=== PATIENT | male | born 1995 | race Two or more races ===

== ENCOUNTER 2024-10-08 11:23 | Emergency (ER) | payer MEDICAID ==
[~2024-10-08] VITALS: Ht 167.6 cm; Wt 77.3 kg
[2024-10-08 12:03] VITALS: TEMP 98
[2024-10-08] MEDS: PERTUSS(ACELL),DIPH,TET/PF 0.5 ML SYRINGE [ADULT] IM. ONE (15:01)
[2024-10-08] MEDS ORDERED: CEPH-558 PO (15:24)
[2024-10-08 15:30] VITALS: BP 122/72; PULSE 82; RESP 18; O2SAT 99
== END 2024-10-08 15:50 | disposition home or self-care (01) ==
LOC: EMS 11:23
DX: S61.210A Laceration without foreign body of right index finger without damage to nail, initial encounter (principal); F17.210 Nicotine dependence, cigarettes, uncomplicated; W26.8XXA Contact with other sharp object(s), not elsewhere classified, initial encounter; Y93.89 Activity, other specified; Y92.89 Other specified places as the place of occurrence of the external cause; Y99.8 Other external cause status
CPT/HCPCS: 12001; 90471; 90715; 99283

== ENCOUNTER 2024-10-12 16:12 | Emergency (ER) | payer MEDICAID ==
[~2024-10-12] VITALS: Ht 170.2 cm; Wt 81.8 kg
[~2024-10-12 16:12] MED LIST: CEPH-558 PO
[2024-10-12 16:22] VITALS: BP 128/69; PULSE 85; RESP 14; TEMP 97.8; O2SAT 98
[2024-10-12] MEDS: BACITRACIN 28 GM OINTMENT TP ONE (18:28)
== END 2024-10-12 18:38 | disposition home or self-care (01) ==
LOC: EMS 16:12
DX: S61.211A Laceration without foreign body of left index finger without damage to nail, initial encounter (principal); F17.210 Nicotine dependence, cigarettes, uncomplicated; X58.XXXA Exposure to other specified factors, initial encounter; Y93.89 Activity, other specified; Y92.89 Other specified places as the place of occurrence of the external cause; Y99.8 Other external cause status
CPT/HCPCS: 99282; Z7502; Z7610